=== PATIENT | female | born 1960 | race Caucasian/White ===

== ENCOUNTER 2023-06-17 07:04 | Outpatient (OUT) | payer OTHER, SELFPAY ==
--- NOTE | 2023-06-17 07:06 | MM_ITS ---
Patient: NOLBERTO SUAREZ Exam Date: 06/17/2023 : 1960 Gender:F Ordering : DR MALA IVERSON Admission #: [id number] Family : DR. NOHEMI PATHAK . Order #: [id number] CLICK HERE TO VIEW EXAM RADIOLOGY REPORT PROCEDURE: MM TOMOSYNTHESIS SCREENING BI COMPARISON: MG MAMM SCREEN 3D ANEL CAD, 06/14/2022. MG MAMM SCREEN 3D ANEL CAD, 06/12/2021. MG MAMM SCREEN ANEL W CAD, 06/06/2020. MG MAMM ANEL SCRN W CAD DIG, 04/06/2013. INDICATIONS: Screening Calculator Name NCI Breast Cancer Risk Assessment Tool 5 Year Breast Cancer Risk n/a% Lifetime Breast Cancer Risk n/a% Personal Breast Cancer Yes, RT BREAST AGE 39 Personal Ovarian Cancer No Treatments RT BREAST LUMPECTOMY WITH RADIATION Family Cancers Mother with breast cancer at age 56; Sister with breast cancer at age 54; Sister with breast cancer at age 49. LOCATION: [facility] BREAST COMPOSITION: Extremely dense, which lowers the sensitivity of mammography. FINDINGS: DIAGNOSTIC CATEGORY 2--BENIGN FINDING: RIGHT BREAST: No significant suspicious finding. Scattered benign-appearing calcifications are present. No significant change has occurred. LEFT BREAST: No significant suspicious finding. Scattered benign-appearing calcifications are present. No significant change has occurred. RECOMMENDATIONS: ROUTINE MAMMOGRAM AND CLINICAL EVALUATION IN 12 MONTHS. PLEASE NOTE: A NORMAL MAMMOGRAM DOES NOT EXCLUDE THE POSSIBILITY OF BREAST CANCER. A CLINICALLY SUSPICIOUS PALPABLE LUMP SHOULD BE BIOPSIED. Dictated by: Sohan Medina M.D. on 06/17/2023 at 12:11 Approved by: Sohan Medina M.D. on 06/17/2023 at 12:40
== END 2023-06-17 07:05 | disposition home or self-care (01) ==
LOC: MAMMO 07:04
PROVIDERS: PCP Family Medicine; Visit Provider Obstetrics & Gynecology
DX: Z12.31 Encounter for screening mammogram for malignant neoplasm of breast (principal); Z80.3 Family history of malignant neoplasm of breast
CPT/HCPCS: 77063; 77067

== ENCOUNTER 2024-07-03 08:49 | Outpatient (OUT) | payer OTHER, SELFPAY ==
--- NOTE | 2024-07-03 08:54 | MM_ITS ---
Patient Name: NOLBERTO SUAREZ MR#: [id number] : 1960 Exam Date: 07/03/2024 Ordering Doctor: DR MALA IVERSON RADIOLOGY REPORT PROCEDURE: MM TOMOSYNTHESIS SCREENING BI COMPARISON: MG MAMM SCREEN 3D ANEL CAD, 06/14/2022. MM TOMOSYNTHESIS SCREENING BI, 06/17/2023. INDICATIONS: Screening Calculator Name NCI Breast Cancer Risk Assessment Tool 5 Year Breast Cancer Risk n/a% Lifetime Breast Cancer Risk n/a% Personal Breast Cancer Yes, RT BREAST AGE 39 Personal Ovarian Cancer No Treatments RT BREAST LUMPECTOMY WITH RADIATION Family Cancers Mother with breast cancer at age 56; Sister with breast cancer at age 54; Sister with breast cancer at age 49. LOCATION: [facility] BREAST COMPOSITION: The breasts are extremely dense, which lowers the sensitivity of mammography. FINDINGS: DIAGNOSTIC CATEGORY 2--BENIGN FINDING. NO CHANGE FROM COMPARISON. Scattered benign-appearing calcifications are present. Scattered benign-appearing lymph nodes are present. RIGHT BREAST: No significant suspicious finding. LEFT BREAST: No significant suspicious finding. RECOMMENDATIONS: ROUTINE MAMMOGRAM AND CLINICAL EVALUATION IN 12 MONTHS. PLEASE NOTE: A NORMAL MAMMOGRAM DOES NOT EXCLUDE THE POSSIBILITY OF BREAST CANCER. A CLINICALLY SUSPICIOUS PALPABLE LUMP SHOULD BE BIOPSIED. Dictated by: Kyle Obregon MD on 07/03/2024 at 13:09 Approved by: Kyle Obregon MD on 07/03/2024 at 13:16
== END 2024-07-03 08:50 | disposition home or self-care (01) ==
LOC: MAMMO 08:49
PROVIDERS: PCP Family Medicine; Visit Provider Obstetrics & Gynecology
DX: Z12.31 Encounter for screening mammogram for malignant neoplasm of breast (principal); Z80.3 Family history of malignant neoplasm of breast
CPT/HCPCS: 77063; 77067

== ENCOUNTER 2025-07-04 07:46 | Outpatient (OUT) | payer MEDICARE, SELFPAY ==
--- OUTSIDE RECORDS SUMMARY | 2013-08-29 03:42 | XMS_ITS | Encounter Summary ---
Author Organization [facility] Address [address], [address] [place] [address] Care Team Providers Care Sheet Metal Erector Name Role Phone Christopher Deal MD Primary Care Provider [phone] Encounter Details Date Type Department Care Team (Late st Contact Info) Description 08/29/2013 2:42 AM EST Hospital Encounter MTH PRE ADMIT [address] [id number] Abraham Siddiqi MD 27 [facility] [address] [place] [address] Social History Tobacco Use Types Packs/Day Years Used Date Smoking Tobacco: Never Smokeless Tobacco: Never Alcohol Use Standard Drinks/Week Comments Not Currently 0 (1 standard drink = 0.6 oz pur e alcohol) rare PHQ-2 Answer Date Recorded PHQ-2 Score 0 12/20/2018 Comments No Sex and Gender Information Value Date Recorded Sex Assigned at Not on file Legal Sex Female 8:48 PM EST Gender Identity Not on file Sexual Orientation Not on file documented as of this encounter Last Filed Vital Signs Vital Sign Reading Time Taken Comments Blood Pressure 116/69 08/29/2013 7:56 AM EST Pulse 71 08/29/2013 7:56 AM EST Temperature - - Respiratory Rate 16 08/29/2013 7:56 AM EST Oxygen Saturation 97% 08/29/2013 7:56 AM EST Inhaled Oxygen Concentration - - Weight 55.6 kg (122 lb 9 oz) 08/29/2013 7:56 AM EST Height 158.8 cm (5' 2.5 ) 08/29/2013 7:56 AM EST Body Mass Index 22.06 08/29/2013 7:56 AM EST documented in this encounter Plan of Treatment Not on file documented as of this encounter Procedures Procedure Name Priority Date/Time Associated Diagnosis Comments URINALYSIS WITH MICROSCOPIC Sunquest Label Print 08/29/2013 8:18 AM EST CBC WITH AUTO DIFFERENTIAL Routine 08/29/2013 8:17 AM EST TYPE AND SCREEN Routine 08/29/2013 8:17 AM EST HCG, SERUM, QUALITATIVE Routine 08/29/2013 8:17 AM EST documented in this encounter Results * Urinalysis with microscopic (08/29/2013 8:18 AM EST) Color, UA YELLOW YEL 08/29/2013 1:12 PM EST PN [facility] Turbidity UA CLEAR CLEAR 08/29/2013 1:12 PM EST PN [facility] Glucose, Ur NEGATIVE NEG 08/29/2013 1:12 PM EST PN [facility] Bilirubin Urine NEGATIVE NEG 3 1:12 PM EST [facility] Ketones, Urine NEGATIVE NEG 08/29/2013 1:12 PM EST PN [facility] Specific [place], UA 1.010 1.010 - 1.020 08/29/2013 1:12 PM EST PN LAB Urine Hgb NEGATIVE NEG 08/29/2013 1:12 PM EST PN LAB pH, UA 7.0 5.0 - 9.0 08/29/2013 1:12 PM EST PN LAB Protein, UA NEGATIVE NEG 08/29/2013 1:12 PM EST PN [facility] Urobilinogen, Urine Normal NORM 08/29/2013 1:12 PM EST PN LAB Nitrite, Urine NEGATIVE NEG 08/29/2013 1:12 PM EST PN [facility] Leukocyte Esterase, Urine NEGATIVE NEG 08/29/2013 1:12 PM EST PN LAB Urinalysis Comments NOT REPORTED [facility] - 08/29/2013 1:12 PM EST PN LAB WBC, UA None 0 - 5 /HPF 08/29/2013 1:12 PM EST PN LAB RBC, UA None 0 - 2 /HPF 08/29/2013 1:12 PM EST [facility] Casts UA NOT REPORTED 0 - 2 /LPF [facility] Crystals, UA NOT REPORTED NONE /HPF [facility] Epithelial Cells, UA 0 TO 2 0 - 25 /HPF 08/29/2013 1:12 PM EST [facility] Comment: Performed at [address] [place] [address] Renal Epithelial, UA NOT REPORTED 0 /HPF [facility] Bacteria, UA NOT REPORTED NONE [facility] Mucus, UA NOT REPORTED NONE [facility] Trichomonas NOT REPORTED NONE [facility] Amorphous, UA NOT REPORTED NONE [facility] Other Observations UA NOT REPORTED NREQ [facility] Yeast, UA NOT REPORTED NONE [facility] URINE SPECIMEN / Unknown 08/29/2013 8:18 AM EST 08/29/2013 8:19 AM EST Abraham Siddiqi MD URINE ORDERABLES Final Result Performing Organization Address City/[facility] Co de Phone Number [facility] [address] [place] [id number] [phone] [facility] * TYPE AND SCREEN (08/29/2013 8:17 AM EST) Expiration Date 09/05/2013 3 1:26 PM EST [facility] Arm Band Number [id number] 1:26 PM EST [facility] ABO/Rh O POSITIVE 08/29/2013 1:26 PM EST [facility] Antibody Screen NEGATIVE 3 1:41 PM EST [facility] Comment: Performed at [address] [place] [address] BLOOD SPECIMEN / Unknown 08/29/2013 8:17 AM EST 08/29/2013 8:18 AM EST Abraham Siddiqi MD BLOOD BANK TEST ORDERABLES Fi nal Result [facility] [address] [place], [place] [address] [phone] [facility] * HCG Qualitative, Serum (08/29/2013 8:17 AM EST) Pathologist [facility] Preg, Serum NEGATIVE NEG 08/29/2013 1:17 PM EST PN LAB Comment: Performed at [address] [place] [id number] BLOOD SPECIMEN / Unknown 08/29/2013 8:17 AM EST 08/29/2013 8:18 AM EST us Abraham Siddiqi MD CHEMISTRY ORDERABLES Final Re sult Performing Organization Address [facility] [place]/[facility]/ZIP Co de Phone Number [facility] [address] [id number] [phone] [facility] * CBC auto differential (08/29/2013 8:17 AM EST) [facility] WBC 5.2 3.5 - 11.0 k/uL 08/29/2013 8:35 AM EST [facility] RBC 4.46 4.0 - 5.2 m/uL 08/29/2013 8:35 AM EST PN LAB Hemoglobin 13.7 12.0 - 16.0 g/dL 08/29/2013 8:35 AM EST [facility] Hematocrit 41.7 36 - 46 % 08/29/2013 8:35 AM EST [facility] MCV 93.7 80 - 100 fL 08/29/2013 8:35 AM EST PN [facility] MCH 30.7 26 - 34 pg 08/29/2013 8:35 AM EST PN LAB MCHC 32.8 31 - 37 g/dL 08/29/2013 8:35 AM EST [facility] RDW 13.1 10.0 - 14.0 % 08/29/2013 8:35 AM EST PN LAB Platelets 332 140 - 450 k/uL 08/29/2013 8:35 AM EST [facility] MPV NOT REPORTED 6.0 - 12.0 fL [facility] Differential Type NOT REPORTED [facility] Seg Neutrophils 59 36 - 66 % 3 8:35 AM EST [facility] Lymphocytes 30 24 - 44 % 08/29/2013 8:35 AM EST [facility] Monocytes % 8 0 - 12 % 08/29/2013 8:35 AM EST [facility] Eosinophils % 2 0 - 8 % 08/29/2013 8:35 AM EST [facility] Basophils % 1 0 - 2 % 08/29/2013 8:35 AM EST [facility] Neutrophils Absolute 3.10 1.8 - 7.7 k/uL 08/29/2013 8:35 AM EST [facility] Lymphocytes Absolute 1.60 1.0 - 4.8 k/uL 08/29/2013 8:35 AM EST [facility] Monocytes Absolute 0.40 0.0 - 1.0 k/uL 08/29/2013 8:35 AM EST [facility] Eosinophils Absolute 0.10 0.0 - 0.4 k/uL 08/29/2013 8:35 AM EST [facility] Basophils Absolute 0.00 0.0 - 0.2 k/uL 08/29/2013 8:35 AM EST [facility] Comment: Performed at [address] [place] [address] WBC Morphology NOT REPORTED [facility] RBC Morphology NOT REPORTED [facility] Platelet Estimate NOT REPORTED [facility] BLOOD SPECIMEN / Unknown 08/29/2013 8:17 AM EST 08/29/2013 8:18 AM EST us Abraham Siddiqi MD HEMATOLOGY ORDERABLES Final R esult [address] [id number] [phone] [facility] documented in this encounter Visit Diagnoses Not on filedocumented in this encounter Care Teams Sheet Metal Erector Relationship Specialty Start Date End Date Christopher Deal MD [address] [facility]. [address] [place] [address] PCP - General 12/26/12 documented as of this encounter
--- OUTSIDE RECORDS SUMMARY | 2020-10-15 12:30 | XMS_ITS | Continuity of Care Document ---
Author Organization [facility] Address [address] [place] [address] Phone Care Team Providers Care Firer Watertender Name Role Phone Asael Uribe Unavailable Unavailable Procedures Procedure Date Moderna COVID Vaccine Admin Dose 2 Moderna COVID-19 Vaccine Moderna COVID Vaccine Admin Dose 2 Moderna COVID-19 Vaccine Moderna COVID Vaccine Admin Dose 1 Moderna COVID-19 Vaccine Advance Directives Directive Yes / No Effective Date File Name No Information Encounters Encounter Description Practice Location Reason(s) For Visit Diagnoses Date Provider Providers Copied on Encounter [facility], [address] [place] [address], [id number], tel:[phone] COVID ECHD No Information Stephanie Kearney. [address] [place] [address], [id number], [place]. tel:[phone] [facility], [address] [place] [address], [id number], [place] tel:[phone] COVID ECHD No Information Stephanie Kearney. [address] [place] [address], [id number], [place]. tel:[phone] Family History Family Member Type Diagnosis Age At Onset No Information Immunizations Vaccine Date Status Comments Moderna COVID administered Source: New Im munization Record Moderna COVID administered Source: New Im munization Record Payers Payer name Insurance type Covered republican ID Ric ulrich(s) [employer] [place] [employer] [id number] [employer] [place] [employer] [id number] [employer] [place] [id number] Social History Type Description Quantity Date Captured Comments Alcohol Use Details Unknown Caffeine Use Details Unknown Tobacco Use Status No Information Smoking Status No Information Sex Female Sexual Orientation Straight or heterosexual Gender Identity Female Chief Complaint And Reason For Visit No Information Reason For Referral Reason For Referral No Information History Of Present Illness Encounter Date Complaint History Of Prese nt Illness No Information Functional Status Date Functional Assessmen t No Information Instructions Date Instruction Additional Infor mation No Information Assessments Type Assessment Date No Information Patient Care Teams Name Effective Dates (start - stop) Status Members No Information
--- OUTSIDE RECORDS SUMMARY | 2025-07-04 07:48 | XMS_ITS | Clinical Summary ---
Author Organization [facility] Address [address], [address] [place] [address] Care Team Providers Care Wool Sorter Name Role Phone Christopher Deal MD Primary Care Provider [phone] Allergies No known active allergies Medications sertraline (ZOLOFT) 50 MG tabletIndication s:Situational depression TAKE 1/2 TABLET BY MOUTH EVERY DAY 30 tablet 5 05/27/2023 Active Active Problems No known active problems Immunizations Immunization Administration Dates Next Due Influenza Vaccine, unspecified formulation 06/21 Family History Medical History Relation Name Comments High Blood Pressure Father High Blood Pressure Maternal Grandfather High Blood Pressure Maternal Grandmother Breast Cancer Mother High Blood Pressure Mother High Blood Pressure Paternal Grandfather High Blood Pressure Paternal Grandmother Relation Name Status Comments Father Alive Maternal Grandfather Maternal Grandmother Mother Paternal Grandfather Paternal Grandmother Sister 1 Alive Sister 2 Alive Social History Tobacco Use Types Packs/Day Years [...] on file Sexual Orientation Not on file Last Filed Vital Signs Vital Sign Reading Time Taken Comments Blood Pressure 114/70 05/27/2023 9:16 AM EDT Pulse 64 08/31/2013 10:55 AM EST Temperature 36.7 C (98 F) 08/31/2013 10:55 AM EST Respiratory Rate 15 08/31/2013 10:55 AM EST Oxygen Saturation 96% 08/31/2013 10:55 AM EST Inhaled Oxygen Concentration - - Weight 56.2 kg (124 lb) 05/27/2023 9:16 AM EDT Height 157.5 cm (5' 2 ) 05/27/2023 9:16 AM EDT Body Mass Index 22.68 05/27/2023 9:16 AM EDT Plan of Treatment Health Maintenance Due Date Last Done Comments Depression Screen 1970 Hepatitis C screen 1976 Lipids 1998 Colonoscopy 12/12/2003 Colorectal Cancer Screen 12/12/2003 FIT/FOBT: Average risk 12/12/2003 Fecal-DNA (Cologuard): Average risk 12/12/2003 Sigmoidoscopy/CT colonography 12/12/2003 Pneumococcal 50+ years Vaccine (1 of 1 - PCV) 2008 DEXA (modify frequency per FRAX score) 2013 DTaP/Tdap/Td vaccine (2 - Td or Tdap) 01/18/2023 01/18/2013 Flu vaccine (#1) 04/19/2025 07/06/2022, , 07/05/2020, Additional history exists COVID-19 Vaccine ( - season) 2025 Breast cancer screen 07/03/2025 07/03/2024, 06/17/2023, 06/04/2019, Additional history exists Respiratory Syncytial Virus (RSV) or age 60 yrs+ (1 - 1-dose 75+ series) 2033 HPV (without or with Pap) Discontinued 03/17/2018 Shingles vaccine Completed 04/26/2021, 01/23/2021 Cervical cancer screen Discontinued Pap smear Discontinued 05/27/2023, 10/21, 11/02/2019, Additional history exists Hepatitis A vaccine Aged Out No longe r eligible based on patient's age to complete this topic Hepatitis B vaccine Aged Out No longe r eligible based on patient's age to complete this topic Hib vaccine Aged Out No longer eligi ble based on patient's age to complete this topic Meningococcal (ACWY) vaccine Aged Out No longer eligible based on patient's age to complete this topic Meningococcal B vaccine Aged Out No l onger eligible based on patient's age to complete this topic Polio vaccine Aged Out No longer elig ible based on patient's age to complete this topic Procedures Procedure Name Priority Date/Time Associated Diagnosis Comments ARTEMIO SCREENING BILATERAL Routine 07/03/20 10:28 AM EDT CLIENT SERVER DEVELOPER CYTOLOGY Routine 05/27/2023 12:00 AM EDT HUMAN PAPILLOMAVIRUS (HPV) DNA PROBE THIN PREP HIGH RISK Routine 03/17/2018 8:21 AM EDT from Last 3 Months or Most Recently Relevant to Health Maintenance Results * ARTEMIO Screening Bilateral (07/03/2024 10:28 AM EDT) Anatomical Region Laterality Modality Breast Bilateral Mammography Abraham Siddiqi MD IM MAMMOGRAPHY ORDERABLES Ed ited Result - Final * CLIENT SERVER DEVELOPER Cytology (05/27/2023 12:00 AM EDT) Cytology Report Path Number: [id number] DIAGNOSIS Imaged ThinPrep Pap - Cervical (1 monolayer slide): Specimen Adequacy: Satisfactory for evaluation. -Endocervical/tra nsformation zone component cannot be determined due to atrophy. Descriptive Diagnosis: Negative for intraepithelial lesion or malignancy. Cytotech Screener: EY Electronically Signed Out Kaila PEREZ(ASCP) ey/06/02/2023 Source of Specimen: A: Imaged ThinPrep Pap - Cervical (1 monolayer slide) HPV Reflex?........... ...........HPV if ASCUS Clinical History Postmenopausal High risk HPV DNA testing is requested if the diagnosis is abnormal Processing Lab: [address] [id number] Interpretation performed at [address] [address] This Pap Test has been evaluated with the assistance of the ThinPrep Pap Test Imaging System. The Pap smear is a screening test primarily for squamous epithelial lesions, which is subject to both false negative and false positive results. Your patient should be reminded to consult you immediately if she experiences any suspicious signs or symptoms, regardless of her Pap smear result. GYNECOLOGIC CYTOLOGY REPORT Patient Name: RADHIKA SUAREZ [facility] Rec: [address] [facility] Clerk [employer] ANATOMIC PATHOLOGY [facility] [facility]. [place], [place] [address] [facility] [employer] CERVICAL MATERIAL 05/27/2023 023 9:20 AM EDT us Abraham Siddiqi MD PATHOLOGY/CYTOLOGY ORDERABLES Final Result [facility] [address] [phone] [facility] [employer] * Human papillomavirus (HPV) DNA probe thin prep high risk (03/17/2018 8:21 AM EDT) HPV SOURCE CERVICAL MATERIAL 04/06/2018 8:22 AM EDT [employer]ugg HPV Sample .THIN PREP 04/06/2018 8:22 AM EDT Tugg HPV, Genotype 16 Not Detected NOTDET 04/07/2018 7:06 AM EDT Tugg HPV, Genotype 18 Not Detected NOTDET 04/07/2018 7:06 AM EDT Tugg HPV, High Risk Other Not Detected NOTDET 04/07/2018 7:06 AM EDT Tugg HPV, Interpretation 04/07/2018 7:06 AM EDT Tugg Comment: This test amplifies and detects DNA of 14 high-risk HPV types associated with cervical cancer and its precursor lesions (HPV types 16,18, 31, 33, 35, 39, 45, 51, 52, 56, 58, 59, 66, and 68). Sensitivity may be affected by specimen collection methods, stage of infection, and the presence of interfering substances. Results should be interpreted in conjunction with other available laboratory and clinical data. A negative high-risk HPV result does not exclude the possibility of future cytologic HSIL or underlying CIN2-3 or cancer. This test is intended for medical purposes only and is not valid for the evaluation of suspected sexual abuse or for other forensic purposes. 03/17/2018 8:21 AM EDT 04/06/2018 8:21 AM EDT us Abraham Siddiqi MD HEMATOLOGY ORDERABLES Final R esult [facility] [address] [place] [address], [facility] [phone] [facility] [address] [place], [place] [address] [phone] from Last 3 Months or Most Recently Relevant to Health Maintenance Insurance [employer] Advance Directives * Full Code (Latest Code Status on File) Date Activated Date Inactivated Comments 08/31/2013 11:02 AM 08/31/2013 1:11 PM Care Teams Wool Sorter Relationship Specialty Start Date End Date Christopher Deal MD [address] [id number] PCP - General 12/26/12
--- OUTSIDE RECORDS SUMMARY | 2025-07-04 07:48 | XMS_ITS | CCD ---
Author Organization [facility] Inform ion Partnership [facility] Care Team Providers Care Head Of Operation And Logistics Name Role Phone Christopher Joiner Primary Care Provider [phone] Nohemi Pathak Primary Care Physician [phone] NOHEMI PATHAK Primary Care Unavailable ZAYRA, DR MALA Denton Attending Unavailable ZAYRA, DR MALA Denton Admitting Unavailable Sabas, DR Wright Consulting Unavailable ZAYRA, DR MALA Denton Consulting Unavailable NOHEMI PATHAK Consulting Unavailable NOHEMI PATHAK Primary Care Unavailable NOHEMI PATHAK Admitting Unavailable NOHEMI PATHAK Attending Unavailable Nohemi Pathak Primary Care Physician CHRISTOPHER JOINER Primary Care Unavailable MALA IVERSON Referring Unavailable Nohemi Pathak Attending Unavailable Jalen Infante Attending Unavailable Nohemi Pathak Attending Unavailable Nohemi Pathak Attending Unavailable Allergies Allergy Classification Reported Allergen(s) Allergy Type Date of Onset Reaction(s) Facility (1 source) No Known Medication Allergies; Translations: [No Known Medication Allergies] Propensity to adverse reactions (disorder) [facility] Repository Medications Current Medications Medication Drug Class(es) Dates Sig (Normalized) Sig (Original) sertraline 50 mg oral tablet (1 source) Serotonin Reuptake Inhibitor Start: 11-02-2019 take 1 tablet by mouth once daily sertraline (ZOLOFT) 50 MG tablet Indications: Situational depression Take 1 tablet by mouth daily 30 tablet 12 11/02/2019 Active Problems Problem Classification Problem Date Documented Da te Episodic/Chronic Adjustment disorders (1 source) Adjustment disorder with depressed mood; Translations: [Adjustment disorder with depressed mood] Onset: 05-27-2023 Chronic Disorders of lipid metabolism (4 sources) Mixed hyperlipidemia 05-13-2022 Chronic Diverticulosis and diverticulitis (1 source) Diverticula of intestine; Translations: [Diverticulosis of large intestine without perforation or abscess without bleeding] Onset: 08-20-2022 Chronic Mood disorders (4 sources) Single episode of major depression in full remission 05-13-2022 Chronic Other gastrointestinal disorders (1 source) Abnormal feces; Translations: [Other fecal abnormalities] Onset: 08-05-2022 Episodic Other nutritional; endocrine; and metabolic disorders (1 source) Overweight in adulthood with body mass index of 25 or more but less than 30; Translations: [Body mass index (BMI) 28.0-28.9, adult] Onset: 05-13-2022 Episodic Other screening for suspected conditions (not mental disorders or infectious disease) (7 sources) Encounter for screening mammogram for malignant neoplasm of breast; Translations: [Stool DNA-based colorectal cancer screening positive] Onset: 06-14-2022 Episodic Residual codes; unclassified (1 source) Patient encounter status; Translations: [Other specified health status] Onset: 05-13-2022 Episodic Residual codes; unclassified (1 source) Family history of malignant neoplasm of breast; Translations: [FAMILY HX MALIG NEOPLASM OF BREAST] Onset: 06-17-2022 Episodic Unclassified (1 source) Patient encounter status Unclassified (3 sources) Body mass index 20-24 - normal 08-05-2022 Results Test Name Value Interpretation Reference Range Facil ity Ambulatory Visit Summaryon 0 11-06-2024 Ambulatory Visit Summary Ambulatory Visit Summary RADHIKA SUAREZ :1960 Visit Date:11/06/2024 Ambulatory Visit Instructions Your Diagnosis IT band syndrome BMI 24.0-24.9, adult Nonsmoker Your Care Team Attending Physician - Nohemi Pathak MD Primary Care Physician - Nohemi Pathak MD This Is Your Medications List Contact prescribing physician if questions or concerns atorvastatin (Lipitor 20 mg Tab) Procedures Performed Colonoscopy (08/20/2022), Cataract extraction (2019), Colonoscopy (2012), Lumpectomy of right breast (1998). Discharge Vitals Temperature (Tympanic) 36.7 ???C Heart Rate (Peripheral) 75 Respiratory Rate 18 Blood Pressure 132/84 Height 157 cm Height 62 in Weight 59.2 kg Weight 130.514 lb BMI 24.02 What to do next Scheduled Follow-Up Appointments Tuesday 8:15 AM EDT With: Angel ELLIS, Nohemi Bright Where: [place] [id number]- Medications What How Much When Why Instructions Unchanged atorvastatin (Lipitor 20 mg Tab) 1 Tablets By Mouth Every day Physical exam Nonsmoker Major depressive disorder with single episode, in full remission Mixed hyperlipidemia Contact prescribing physician if questions or concerns Allergies No Known Allergies No Known Medication Allergies Problems Ongoing - Any problem that you are currently receiving treatment for. BMI 22.0-22.9, adult BMI 24.0-24.9, adult IT band syndrome Major depressive disorder with single episode, in full remission Mixed hyperlipidemia Nonsmoker Patient Survey You may receive a survey via text or e-mail asking about your office visit. Please share your experience with us by completing your survey. We appreciate your feedback and thank you for choosing us for your care. Normal [facility] Medicine Office/Clini c Noteon 11-06-2024 Family Medicine Office/Clinic Note Family Medicine Office/Clinic Note Chief Complaint Acute Visit *Pain The patient complains of hip pain and tightness in the iliotibial band. HPI Staff Pt presents today for acute visit. Has been having Lt hip issues. Currently 0/10. Pain is exacerbated with walking up stairs. Has tried deep tissue massage & chiropractor. History of Present Illness The patient is a 63-year-old female presenting with hip pain and muscle tightness. The symptoms have been present for an unspecified duration with reports of discomfort that initiate when lying on either side while sleeping and when ascending stairs. The pain is described as a pinching sensation on the opposite side when lying down and on the affected side during stair climbing. The patient reports tightness in the iliotibial (IT) band region, with previous concerns about greater trochanteric bursitis that were evaluated and found unlikely. The patient has attempted conservative management with stretching exercises, nonsteroidal anti-inflammatory drugs, and massage therapy, including deep tissue massage, with some relief. The patient expresses apprehension about chiropractic treatments. The pain does not radiate and is not characterized by shooting pain, but rather a persistent tightness, affecting both the hip and lower back areas. 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 The patient has not had imaging studies, such as X-rays or MRIs for arthritis evaluation. - Discussions about managing physical stress and muscular tension through lifestyle adaptations including posture modifications and physical therapy referrals. - Emphasis on continued physical activity and stretching exercises pertinent to IT band syndrome management. - Non-smoker status confirmed during conversation. Review of Systems PHQ Score Initial Depression Screen Score: 0 SCORE Physical Exam Vitals & Measurements T: 36.7 ???C(Tympanic) HR: 75(Peripheral) RR: 18 BP: 132/84 SpO2: 96% HT: 62 in HT: 157 cm WT: 59.2 kg WT: 130.514 lb BMI: 24.02 General: alert, no acute distress ENMT: oral mucosa moist Cardiovascular: Regular rate and rhythm, normal peripheral perfusion Respiratory: Lungs clear to auscultation, respirations non labored Extremities: no deformity, no trauma Neurological: oriented x 4, level of consciousness appropriate for age, CN II-XII intact, motor strength equal & normal bilaterally, speech normal Abdomen: Soft, Non-tender, Non-distended, + Bowel sounds Assessment/Plan 1. IT band syndrome (M76.30: Iliotibial band syndrome, unspecified leg) The focus for the IT band syndrome will include continuing targeted stretching exercises and utilizing NSAIDs for symptomatic relief as needed. The patient has been advised on purchasing an IT band roller to aid in reducing muscular tightness. Discussion of potential intensive care nurse was noted but the patient expressed discomfort with this intervention. Follow-up for possible physical therapy evaluation to explore the need for remedial exercises and further posture adjustment has been recommended. 2. BMI 24.0-24.9, adult (Z68.24: Body mass index [BMI] 24.0-24.9, adult) Maintenance of current weight through healthy lifestyle, diet, and exercise is recommended. Continual monitoring of BMI and potential weight management interventions should be addressed in future visits. 3. Nonsmoker (Z78.9: Other specified health status) No intervention required; continue to maintain a non-smoking status. 63-year-old female with a history of BMI 24.0-24.9 and non-smoking status presenting with hip pain and discomfort attributed to iliotibial band syndrome. The patient's symptomatology aligns with this diagnosis, with muscular tightness and associated hip pain upon activity. There is no evidence of greater trochanteric bursitis or rheumatoid arthritis based on reported symptoms. Consideration of musculoskeletal etiology related to occupational posture and stress has been noted. I discussed with the patient that the symptoms are consistent with iliotibial band syndrome, emphasizing the importance of continuing stretching exercises and the potential use of an IT band roller to relieve tension. NSAIDs may be used to manage pain. While intensive care nurse was a consideration, the patient prefers alternative methods. We reviewed the importance of posture modification in daily activities to alleviate muscular strain, especially given her occupation. I recommended monitoring the symptoms and consider seeking physical therapy to address potential underlying musculoskeletal issues if the condition persists. We also discussed her BMI, encouraging a healthy lifestyle and weight maintenance. Cardiovascular health is a priority due to her non-smoking status and BMI. I reassured her that no immediate imaging studies were necessary given the current evaluation, and we would consider diagnostic (more content not included)... Normal [facility] Comment on above: Result Comment: Elec tronically Signed By: Angel ELLIS, Nohemi Bright\.br\Date and Time Signed: 11/06/24 13:58 EST Family Medicine Office/Clini c Noteon 05-28-2024 Family Medicine Office/Clinic Note Family Medicine Office/Clinic Note HPI Staff Radhika is a 63 year old female presenting for yearly PE Labs done through school, cholesterol high tried fish oit but wants to get on cholesterol medication Health Maintenance: Colonoscopy: 2021 normal Mammo: due Jun 2024 Pap: 2022 Last Labs: 05/04/24 ([place]) History of Present Illness Reviewed labs. Here for complete physical. Review of Systems PHQ Score Initial Depression Screen Score: 0 SCORE Physical Exam Vitals & Measurements T: 36.8 ?C(Temporal Artery) HR: 72(Peripheral) RR: 16 BP: 112/70 SpO2: 96% HT: 62 in HT: 157 cm WT: 58.2 kg WT: 128.04 lb BMI: 23.61 General: alert, no acute distress ENMT: oral mucosa moist, Cardiovascular: regular rate and rhythm, normal peripheral perfusion Respiratory: Lungs CTA, respirations non labored Extremities: no deformity, no trauma Neurological: oriented x 4, LOC appropriate for age, CN II-XII intact, motor strength equal & normal bilaterally, speech normal Abdomen: Soft, Nontender, Non-distended, + BS Assessment/Plan 1. Physical exam (Z00.00: Encounter for general adult medical examination without abnormal findings) Anticipatory guidance given. Discussed diet and exercise. Ordered: atorvastatin, 20 mg = 1 tab(s), Oral, Daily, # 90 tab(s), Refills(s) 0, Pharmacy: [facility], 157, cm, 05/28/24 16:58:00 EDT, Height/Length Dosing, 58.2, kg, 05/28/24 16:58:00 EDT, Weight Dosing Est Preventative 65+ years [address] 2. Nonsmoker (Z78.9: Other specified health status) Please continue not to smoke. Ordered: atorvastatin, 20 mg = 1 tab(s), Oral, Daily, # 90 tab(s), Refills(s) 0, Pharmacy: [facility], 157, cm, 05/28/24 16:58:00 EDT, Height/Length Dosing, 58.2, kg, 05/28/24 16:58:00 EDT, Weight Dosing Est Preventative 65+ years [address] 3. Major depressive disorder with single episode, in full remission (F32.5: Major depressive disorder, single episode, in full remission) In remission. Ordered: atorvastatin, 20 mg = 1 tab(s), Oral, Daily, # 90 tab(s), Refills(s) 0, Pharmacy: [facility], 157, cm, 05/28/24 16:58:00 EDT, Height/Length Dosing, 58.2, kg, 05/28/24 16:58:00 EDT, Weight Dosing Est Preventative 65+ years [address] 4. Mixed hyperlipidemia (E78.2: Mixed hyperlipidemia) Will start a low-dose statin. Instructions discussed in detail. Ordered: atorvastatin, 20 mg = 1 tab(s), Oral, Daily, # 90 tab(s), Refills(s) 0, Pharmacy: [facility], 157, cm, 05/28/24 16:58:00 EDT, Height/Length Dosing, 58.2, kg, 05/28/24 16:58:00 EDT, Weight Dosing Est Preventative 65+ years [address] Follow-up No qualifying data available Problem List/Past Medical History Ongoing BMI 22.0-22.9, adult Major depressive disorder with single episode, in full remission Mixed hyperlipidemia Physical exam Historical No qualifying data Procedure/Surgical History Colonoscopy (08/20/2022), Cataract extraction (2019), Colonoscopy (2012), Lumpectomy of right breast (1998). Medications Lipitor 20 mg Tab, 20 mg= 1 tab(s), Oral, Daily Allergies No Known Allergies No Known Medication Allergies Social History Alcohol Current, Wine, 1-2 times per month, 05/13/2022 Substance Abuse - Denies Substance Abuse, 05/13/2022 Tobacco Never (less than 100 in lifetime) Tobacco Use:. Never Smokeless Tobacco Use:., 05/28/2024 Family History Primary malignant neoplasm of female breast: Mother and Sister. Normal [facility] Comment on above: Result Comment: Elec tronically Signed By: Angel ELLIS, Nohemi Raza.portia\Date and Time Signed: 05/28/24 17:36 EDT Cytology Reporton 05-27-2023 Cytology report Cyto stain.thin prep Doc (Cvx/Vag) (NOTE) Path Number: [id number] DIAGNOSIS Imaged ThinPrep Pap - Cervical (1 monolayer slide): Specimen Adequacy: Satisfactory for evaluation. -Endocervical/transfo rmation zone component cannot be determined due to atrophy. Descriptive Diagnosis: Negative for intraepithelial lesion or malignancy. Cytotech Screener: EY Electronically Signed Out Kaila PEREZ(ASCP) ey/06/02/2023 Source of Specimen: A: Imaged ThinPrep Pap - Cervical (1 monolayer slide) HPV Reflex?.............. ........HPV if ASCUS Clinical History Postmenopausal High risk HPV DNA testing is requested if the diagnosis is abnormal Processing Lab: [address] [id number] Interpretation performed at [address] [id number] This Pap Test has been evaluated with [...] GYNECOLOGIC CYTOLOGY REPORT Patient Name: RADHIKA SUAREZ [facility] Rec: [id number] [facility] [employer] [facility] ANATOMIC PATHOLOGY [address] [place] [address]. [place], [place] [address] Normal [facility] MG MAMM SCREEN 3D ANEL CADon 06-14-2022 MG MAMM SCREEN 3D ANEL CAD Patient: RADHIKA SUAREZ Exam Date: 06/14/2022 : 1960 Gender:F Ordering : DR MALA IVERSON Admission #: [id number] Family : Order #: [id number] CLICK HERE TO VIEW EXAM RADIOLOGY REPORT PROCEDURE: MAMMOGRAM SCREENING 3D BILATERAL CAD COMPARISON: MG MAMM SCREEN 3D ANEL CAD, 06/12/2021. INDICATIONS: Screening mammography Calculator Name NCI Breast Cancer Risk Assessment Tool 5 Year Breast Cancer Risk n/a% Lifetime Breast Cancer Risk n/a% Personal Breast Cancer Yes, RT BREAST AGE 39 Personal Ovarian Cancer No Treatments RT BREAST LUMPECTOMY WITH RADIATION Family Cancers Mother with breast cancer at age 56; Sister with breast cancer at age 54; Sister with breast cancer at age 49. LOCATION: [facility] BREAST COMPOSITION: Extremely dense, which lowers the sensitivity of mammography. FINDINGS: DIAGNOSTIC CATEGORY 2--BENIGN FINDING. NO CHANGE FROM COMPARISON. Scattered benign-appearing nodules are present. Scattered benign-appearing calcifications are present. Scattered benign-appearing lymph nodes are present. Bilateral linear scar markers RIGHT BREAST: No significant suspicious finding. LEFT BREAST: No significant suspicious finding. Microclip marker upper outer quadrant. RECOMMENDATIONS: ROUTINE MAMMOGRAM AND CLINICAL EVALUATION IN 12 MONTHS. PLEASE NOTE: A NORMAL MAMMOGRAM DOES NOT EXCLUDE THE POSSIBILITY OF BREAST CANCER. A CLINICALLY SUSPICIOUS PALPABLE LUMP SHOULD BE BIOPSIED. Dictated by: Kyle Obregon MD on 06/14/2022 at 09:35 Approved by: Kyle Obregon MD on 06/14/2022 at 09:42 Normal [facility] CBC AUTO DIFFon 05-06-2022 BASO # 0.1 103/ul Normal 0.0-0.1 [facility] Comment on above: Performed By: #### H FPFCBC #### [facility] [address] [place] [address] [address] Jer Arita Basophils/100 WBC (Bld) 1.8 % Normal 0.2-2.0 [facility] Comment on above: Performed By: #### H FPFCBC #### [facility] [address] [place] [address] Dr. Jer Arita EO # 0.2 103/ul Normal 0.0-0.7 [facility] Comment on above: Performed By: #### H FPFCBC #### [facility] [address] [place] [address] Dr. Jer Arita Eosinophils/100 WBC (Bld) 3.6 % Normal 0.9-7.0 [facility] Comment on above: Performed By: #### H FPFCBC #### [facility] [address] [place] [address] Dr. Jer Arita Erythrocyte distribution width (RBC) [Ratio] 12.8 % Normal 11.0-15.0 [facility] Comment on above: Performed By: #### H FPFCBC #### [facility] [address] [place] [address] Dr. Jer Arita Hematocrit (Bld) [Volume fraction] 43.7 % Normal 36.0-48.0 [facility] Comment on above: Performed By: #### H FPFCBC #### [facility] [address] [place] [address] Dr. Jer Arita Hemoglobin (Bld) [Mass/Vol] 14.2 g/dL Normal 12.0-16.0 [facility] Comment on above: Performed By: #### H FPFCBC #### [facility] [address] [place] [address] Dr. Jer Arita IG # 0.01 10e3/ul Normal 0.00-0.03 [facility] Comment on above: Performed By: #### H FPFCBC #### [facility] [address] [place] [address] Dr. Jer Arita IG % 0.2 % Normal 0.0-0.5 [facility] Comment on above: Performed By: #### H FPFCBC #### [facility] [address] [place] [address] Dr. Jer Arita LYMPH # 2.2 103/ul Normal 1.2-3.8 [facility] Comment on above: Performed By: #### H FPFCBC #### [facility] [address] [place] [address] Dr. Jer Arita Lymphocytes/100 WBC (Bld) 43.8 % Normal 20.5-60.0 [facility] Comment on above: Performed By: #### H FPFCBC #### [facility] [address] [place] [address] Dr. Jer Arita MCH (RBC) [Entitic mass] 30.6 pg Normal 26.7-34.0 [facility] Comment on above: Performed By: #### H FPFCBC #### [facility] [address] [place] [address] Dr. Jer Arita MCHC (RBC) [Mass/Vol] 32.5 g/dL Normal 29.9-35.2 [facility] Comment on above: Performed By: #### H FPFCBC #### [facility] [address] [place] [address] Dr. Jer Arita MCV (RBC) [Entitic vol] 94.2 fL Normal 81.0-99.0 [facility] Comment on above: Performed By: #### H FPFCBC #### [facility] [address] [place] [address] Dr. Jer Arita MONO # 0.5 103/ul Normal 0.3-0.8 [facility] Comment on above: Performed By: #### H FPFCBC #### [facility] [address] [place] [address] Dr. Jer Arita Monocytes/100 WBC (Bld) 10.3 % Normal 1.7-12.0 [facility] Comment on above: Performed By: #### H FPFCBC #### [facility] [address] [place] [address] Dr. Jer Arita NEUT # 2.0 103/ul Normal 1.4-6.5 [facility] Comment on above: Performed By: #### H FPFCBC #### [facility] [address] [place] [address] [address] Jer Arita Neutrophils/100 WBC (Bld) 40.3 % Critically low 43.0-75.0 [facility] Comment on above: Performed By: #### H FPFCBC #### [facility] [address] [place] [address] [address] Jer Arita Platelet mean volume (Bld) [Entitic vol] 11.2 fL Normal 9.5-13.5 [facility] Comment on above: Performed By: #### H FPFCBC #### [facility] [address] [place] [address] [address] Jer Arita PLT 336 103/ul Normal 150-450 [facility] Comment on above: Performed By: #### H FPFCBC #### [facility] [address] [address] [address] Jer Arita RBC 4.64 106/ul Normal 4.20-5.40 [facility] Comment on above: Performed By: #### H FPFCBC #### [facility] [address] [address] [address] Jer Arita WBC 5.0 103/ul Normal 4.0-11.0 [facility] Comment on above: Performed By: #### H FPFCBC #### [facility] [address] [address] [address] Jer Arita [employer] PROFILEon 022 Albumin [Mass/Vol] 4.0 g/dL Normal 3.4-5.0 [facility] Comment on above: Performed By: #### H FPF #### [facility] [address] [address] [address] Jer Arita Albumin/Globulin [Mass ratio] 1.1 {ratio} Normal [facility] Comment on above: Performed By: #### H FPF #### [facility] [address] [address] [address] Jer Arita ALP [Catalytic activity/Vol] 80 U/L Normal 46-116 [facility] Comment on above: Performed By: #### H FPF #### [facility] [address] [address] [address] Jer Arita ALT [Catalytic activity/Vol] 21 U/L Normal 14-59 [facility] Comment on above: Performed By: #### H FPF #### [facility] [address] [address] [address] Jer Arita AST [Catalytic activity/Vol] 19 U/L Normal 15-37 [facility] Comment on above: Performed By: #### H FPF #### [facility] [address] [address] [address] Jer Arita Bilirubin [Mass/Vol] 0.4 mg/dL Normal 0.2-1.0 [facility] Comment on above: Performed By: #### H FPF #### [facility] [address] [place] [address] Dr. Jer Arita Calcium [Mass/Vol] 9.3 mg/dL Normal 8.5-10.1 [facility] Comment on above: Performed By: #### H FPF #### [facility] [address] [place] [address] Dr. Jer Arita Chloride [Moles/Vol] 105 mmol/L Normal 98-107 [facility] Comment on above: Performed By: #### H FPF #### [facility] [address] [place] [address] Dr. Jer Arita CHOL-HDL RATIO NORM SEE BELOW Normal [facility] Comment on above: Result Comment: 3.3 - 4.4 LOW RISK 4.4 - 7.1 AVERAGE RISK 7.1 - 11.0 MODERATE RISK >11.0 HIGH RISK Performed By: #### H FPF #### [facility] [address] [address] [address] Jer Arita Cholesterol [Mass/Vol] 208 mg/dL Critically high <=200 [facility] Comment on above: Performed By: #### H FPF #### [facility] [address] [place] [address] [address] Jer Arita Cholesterol in HDL [Mass/Vol] 74 mg/dL Critically high 40-60 [facility] Comment on above: Performed By: #### H FPF #### [facility] [address] [address] [address] Jer Arita Cholesterol in LDL [Mass/Vol] 120.2 mg/dL Normal [facility] Comment on above: Performed By: #### H FPF #### [facility] [address] [address] [address] Jer Arita Cholesterol.total/C holesterol in HDL [Mass ratio] 2.8 {ratio} Normal [facility] Comment on above: Performed By: #### H FPF #### [facility] [address] [address] [address] Jer Arita CO2 [Moles/Vol] 30.2 mmol/L Normal 21.0-32.0 [facility] Comment on above: Performed By: #### H FPF #### [facility] [address] [address] [address] Jer Arita Creatinine [Mass/Vol] 0.80 mg/dL Normal 0.55-1.02 [facility] Comment on above: Performed By: #### H FPF #### [facility] [address] [address] [address] Jer Arita Globulin (S) [Mass/Vol] 3.8 g/dL Normal [facility] Comment on above: Performed By: #### H FPF #### [facility] [address] [address] [address] Jer Arita Glucose [Mass/Vol] 89 mg/dL Normal 74-106 [facility] Comment on above: Performed By: #### H FPF #### [facility] [address] [address] [address] Jer Arita HDL NORMAL > or = 60 mg/dl - LO W CARDIOVASCULAR RISK <40 mg/dl - HIGH CARDIOVASCULAR RISK Normal [facility] Comment on above: Performed By: #### H FPF #### [facility] [address] [address] [address] Jer Arita LDL CALC NORMAL SEE BELOW Normal [facility] Comment on above: Result Comment: <100 mg/dl OPTIMAL 100 - 129 mg/dl NEAR OR ABOVE OPTIMAL 130 - 159 mg/dl BORDERLINE HIGH 160 - 189 mg/dl HIGH >190 mg/dl VERY HIGH Performed By: #### H FPF #### [facility] [address] [place] [address] Dr. Jer Arita Potassium [Moles/Vol] 4.2 mmol/L Normal 3.5-5.1 [facility] Comment on above: Performed By: #### H FPF #### [facility] [address] [place] [address] Dr. Jer Arita Protein [Mass/Vol] 7.8 g/dL Normal 6.4-8.2 [facility] Comment on above: Performed By: #### H FPF #### [facility] [address] [place] [address] Dr. Jer Arita Sodium [Moles/Vol] 142 mmol/L Normal 136-145 [facility] Comment on above: Performed By: #### H FPF #### [facility] [address] [place] [address] Dr. Jer Arita Triglyceride [Mass/Vol] 69 mg/dL Normal <=150 [facility] Comment on above: Performed By: #### H FPF #### [facility] [address] [place] [address] Dr. Jer Arita TSH 2.539 uIU/mL Normal 0.358-3.740 [facility] Comment on above: Performed By: #### H FPF #### [facility] [address] [place] [address] Dr. Jer Arita Urea nitrogen [Mass/Vol] 14.0 mg/dL Normal 7.0-18.0 [facility] Comment on above: Performed By: #### H FPF #### [facility] [address] [place] [address] Dr. Jer Arita Urea nitrogen/Creatinine [Mass ratio] 17.5 mg/mg Normal [facility] Comment on above: Performed By: #### H FPF #### [facility] [address] [place] [address] Dr. Jer Arita VLDL CALC 13.8 mg/dL Normal [facility] Comment on above: Performed By: #### H F #### [facility] [address] [place] [address] Dr. Jer Arita Vital Signs Date Time Vital Sign Value Performing Clinician Faci lity 08-20-2022 10:05-0500 Diastolic blood pressure 50 mm[Hg] Esdras NILL [facility] 08-20-2022 10:05-0500 Heart rate 70 /min Esdras NILL [facility] 08-20-2022 10:05-0500 Respiratory rate 14 /min Esdras NILL [facility] 08-20-2022 10:05-0500 SaO2% (BldA) [Mass fraction] 96 % Sedras NILL [facility] 08-20-2022 10:05-0500 Systolic blood pressure 113 mm[Hg] Esdras NILL [facility] 08-20-2022 09:55-0500 Diastolic blood pressure 72 mm[Hg] Esdras NILL [facility] 08-20-2022 09:55-0500 Heart rate 76 /min Esdras NILL [facility] 08-20-2022 09:55-0500 Respiratory rate 17 /min Esdras NILL [facility] 08-20-2022 09:55-0500 SaO2% (BldA) [Mass fraction] 95 % Esdras NILL [facility] 08-20-2022 09:55-0500 Systolic blood pressure 108 mm[Hg] Esdras NILL [facility] 08-20-2022 09:50-0500 Diastolic blood pressure 52 mm[Hg] Esdras NILL [facility] 08-20-2022 09:50-0500 Heart rate 68 /min Esdras NILL [facility] 08-20-2022 09:50-0500 Respiratory rate 16 /min Esdras NILL [facility] 08-20-2022 09:50-0500 SaO2% (BldA) [Mass fraction] 94 % Esdras NILL [facility] 08-20-2022 09:50-0500 Systolic blood pressure 89 mm[Hg] Esdras NILL [facility] 08-20-2022 09:40-0500 Body temperature 98.24 [degF] Esdras NILL [facility] 08-20-2022 08:47-0500 Blood Pressure Location Esdras NILL [facility] 08-20-2022 08:47-0500 Body temperature 97.7 [degF] Esdras NILL [facility] 08-20-2022 08:47-0500 Respiratory rate 15 /min Esdras NILL [facility] 08-05-2022 14:08-0500 Blood Pressure Location Esdras NILL [facility] [place] 08-05-2022 14:08-0500 Diastolic blood pressure 87 mm[Hg] Esdras NILL [facility] [place] 08-05-2022 14:08-0500 Heart rate 80 /min Esdras NILL [facility] [place] 08-05-2022 14:08-0500 Respiratory rate 16 /min Esdras NILL [facility] [place] 08-05-2022 14:08-0500 Systolic blood pressure 151 mm[Hg] Esdras BARBOSA [facility] [place] 05-13-2022 14:41-0400 Blood Pressure Location Nohemi Angel [facility] 05-13-2022 14:41-0400 Diastolic blood pressure 80 mm[Hg] Nohemi Pathak [facility] 05-13-2022 14:41-0400 Heart rate 72 /min Nohemiarnie Pathak [facility] 05-13-2022 14:41-0400 SaO2% (BldA) [Mass fraction] 96 % Nohemiarnie Pathak [facility] 05-13-2022 14:41-0400 Systolic blood pressure 116 mm[Hg] Nohemi Pathak [facility] Encounters Encounter Date Encounter Type Care Provider Facility Start: 07-10-2025 ambulatory Jalen James y:[facility] [place] Start: 06-03-2025 ambulatory Nohemi Pathak Facility :[facility] [place] Start: 11-06-2024 End: 11-06-2024 ambulatory Nohemi Pathak Facility:[facility] [place] Start: 05-28-2024 End: 05-28-2024 ambulatory Nohemi Pathak Facility:[facility] [place] Start: 05-27-2023 End: 05-28-2023 ambulatory CHRISTOPHER SYLVESTERBRANDON [place] [facility] Start: 05-16-2023 End: 05-16-2023 Patient encounter procedure Nohemi Pathak [facility] Start: 08-20-2022 End: 08-20-2022 Patient encounter procedure Esdras BARBOSA [facility] Start: 08-05-2022 End: 08-05-2022 Patient encounter procedure Esdras BARBOSA [facility] [place] Start: 06-14-2022 End: 06-15-2022 ambulatory NOHEMI PATHAK Facility:[facility] Start: 05-13-2022 End: 05-13-2022 Patient encounter procedure Nohemi Pathak [facility] [place] Start: 05-06-2022 End: 05-07-2022 ambulatory NOHEMI PATHAK Facility:[facility] Start: 11-02-2019 End: 11-02-2019 Subsequent hospital visit by physician Christopher [facility] Comment on above: Encounter for well w melina exam with routine gynecological exam Procedures Date Procedure Procedure Detail Performing Clinician Start: 08-20-2022 Colonoscopy Esdras BANG Start: 09-19-2019 Extraction of cataract Nohemi Pathak Start: 09-19-2012 Colonoscopy Nohemi matias Start: 09-19-1998 Lumpectomy of right breast Nohemi Pathak Plan of Treatment Date Care Activity Detail Author Start: 10-13-2023 Cervical cancer screen Cervical canc er screen [employer] Work Phone: Start: 06-04-2020 Breast cancer screen Breast cancer s creen [employer] [facility] Work Phone: Start: 05-20-2019 Influenza vaccination Flu vaccine (# 1) [facility] Phone: Start: 2008 Colon cancer screen colonoscopy Colon cancer screen colonoscopy [employer] Phone: Start: 2008 Shingles Vaccine (1 of 2) Shingles V accine (1 of 2) [employer] [facility] Work Phone: Start: 1998 Lipid screen Lipid screen [facility] Work Phone: Start: 1973 HIV screen HIV screen [employer] Phone: Start: 1969 DTaP/Tdap/Td vaccine (1 - Tdap) DTaP/Tdap/Td vaccine (1 - Tdap) [employer] Phone: Start: 1960 Hepatitis C screen Hepatitis C scree n [employer] Phone: End: 11-02-2019 Cytopathology procedure, preparation of smear, genital source [facility] Routine Encounter for well woman exam with routine gynecological exam 1 Occurrences starting 11/02/2019 until 11/02/2019 [employer] Phone: Comment on above: 1 Occurrences starti ng 11/02/2019 until 11/02/2019 Immunizations Immunization Date Immunization Notes Care Provider Nixon [place] 06-21-2018 Influenza Vaccine, unspecified formulation [facility] Payers Date Payer Category Payer Unknown [employer] [address] xxxxxxxxxxxx 2014-Present [phone] [address] [place] [address] xxxxxxxxxxxx [id number] 1961 Self-pay [id number] 1961 Unknown [id number] 1960 Unknown [id number] 1958 Unknown [id number] 1958 Unknown [id number] 1958 Unknown [id number] 1958 Unknown [id number] 1960 Unknown [id number] Unknown [id number] Social History Date Type Detail Facility Start: 11-02-2019 End: 05-16-2023 Tobacco smoking status NHIS Never smoker [facility] Start: 11-02-2019 Alcohol intake Current drinke r of alcohol (finding) [employer] [facility] Work Phone: Start: 08-31-2013 Alcohol Comment rare [employer] Work Phone: Sex Assigned At Not on file [employer] Phone: Sex Assigned At Female [facility] Tobacco smoking status Never [facility] Functional Status Date Assessment Result Facility 08-20-2022 Functional Status N/A [facility] 08-05-2022 Functional Status N/A [facility] 05-13-2022 Functional Status N/A [facility] Evaluation + Plan note 08-20-2022 Note Date & Type Note Facility 08-20-2022 Evaluation + Plan note Extrac carlton from: Title:ANES POSTOP Author:Jeison Leon DO Date: 08/20/22 Patient: RADHIKA SUAREZ Age: 61 years Sex: Female : 1960 Associated Diagnoses: None Author: Jeison Leon DO Postoperative Information Post Operative Note: Post Anesthesia Care Unit. Physical Examination Vital Signs (last 24 hrs) Last Charted Resp Rate 14 br/min (AUG 20 10:05) IAV643 mmHg (AUG 20 10:05) DBPL 50mmHg (AUG 20 10:05) OhU945 % (AUG 20 10:05) Nzvcbt36.4 kg (DEC 02 08:37) BMI22.88 (AUG 20 08:37) Pain assessment: Pain Assessment 08/20/2022 10:05 EST Numeric Pain Scale 0 = No pain Numeric Pain Score 0 08/20/2022 9:55 EST Numeric Pain Scale 0 = No pain Numeric Pain Score 0 . General: No acute distress. HENT: dentition at preop baseline.. Respiratory: Respirations are non-labored. Cardiovascular: stable hemodynamics. Neurologic: interactive. Assessment Anesthetic outcome No anesthetic complications noted. Adequate pain relief. adequate hydration. PONV controlled. Plan Transfer/ Discharge: Patient can be discharged from PACU when criteria met. Condition good. Addendum by Jeison Leon DO on August 20, 2022 11:34 EST changed note type to progress Extracted from: Title:ANES PREOP ENDO NOTE Author:Hien Leon DO Date:08/20/22 Plan [place] [employer]esthesiologists (ASA) physical status classification: Class II. Anesthetic Preoperative Plan Anesthesia: Monitored anesthesia care and general anesthesia possible. Anesthetic plan, risks, benefits, and alternatives discussed with the patient and/or family. Pt. and/or family present and agree to proceed as planned.. Risks discussed including heart, lung, nerve damage. Risks of bleeding, dental injury, hospitalization, and general injury discussed. . Future Appointments Appointment Date:05/16/2023 06:20:00 PM Scheduled Provider:Nohemi Pathak MD Location:[facility] Appointment Type:[facility] Discharge instructions 08-20-2022 Note Date & Type Note Facility 08-20-2022 Hospital Discharg e instructions Patient Education 08/20/2022 09:47:50 Colonoscopy, Care After Surgery [facility] (CUSTOM) Colonoscopy Care After Surgery Please read the instructions outlined below and refer to this sheet in the next few weeks. These discharge instructions provide you with general information on caring for yourself after you leave the hospital. Your doctor may also give you specific instructions. While your treatment has been planned according to the most current medical practices available, unavoidable complications occasionally occur. If you have any problems or questions after discharge, please call your doctor. ACTIVITY You may resume your regular activity, but move at a slower pace for the next 24 hours. Take frequent rest periods for the next 24 hours. Walking will help get rid of the air and reduce the bloated feeling in your abdomen (belly). No driving for 24 hours (because of the anesthesia (medicine) used during the test). You may shower. Do not sign any important legal documents or operate any machinery for 24 hours (because of the anesthesia used during the test). NUTRITION Drink plenty of fluids. You may resume your normal diet as instructed by your doctor. Begin with a light meal and progress to your normal diet. Heavy or fried foods are harder to digest and may make you feel nauseated (sick to your stomach). Avoid alcoholic beverages for 24 hours or as instructed. MEDICATIONS You may resume your normal medications unless your doctor tells you otherwise. WHAT YOU CAN EXPECT TODAY Some feelings of bloating in the abdomen. Passage of more gas than usual. Spotting of blood in your stool or on the toilet paper. FOLLOW-UP Your doctor will discuss the results of your test with you. SEEK IMMEDIATE MEDICAL ATTENTION IF: There is more than a spotting of blood in your stool. There is abdominal distention (your abdomen is swollen). There is vomiting. You have a temperature over 101.5 F. There is abdominal pain or discomfort that is severe or gets worse throughout the day. 08/20/2022 09:47:50 Diverticulosis MAGR (CUSTOM) Diverticulosis Many people have small pouches in their colon called diverticulum. The diverticulum bulge outward through weak spots in the colon. You could have one or more of these pouches in the colon. The condition of having these pouches in the colon is called diverticulosis or diverticular disease. Diverticulosis is usually diagnosed by tests to evaluate something else. For example, you may have had a colonoscopy to screen for colon cancer when the diverticulosis was found. Most people with diverticulosis do not have any discomfort or problems. If symptoms develop, they may include mild cramps, bloating, and constipation. A complication of this condition is called diverticulitis. This is when the diverticulum become inflamed and infected. How to treat diverticulosis: Increasing the amount of fiber in the diet may reduce symptoms of diverticulosis and prevent complications such as diverticulitis (infected diverticuli). Fiber keeps stool soft and lowers pressure inside the colon so that bowel contents can move through easily. You should eat 20 to 35 grams of fiber each day. The table below shows the amount of fiber in some foods that you can easily add to your diet. Adding fiber slowly may decrease the bloating and fullness sometimes felt with an immediate high fiber diet. The doctor may also recommend taking a fiber product such as Citrucel or Metamucil once a day. In the past people with diverticulosis were to avoid nuts, corn, and seeds. This has not been found to be true. If you find that certain foods create cramping or bloating, avoid that food. Foods high in fiber include: Fresh fruits, fresh vegetables, legumes (beans), whole wheat bread, bran muffins or cereal, and nuts. See the table below for examples of high fiber foods. Remember, your goal is 20-35 grams per day. Amount of fiber in different foods Food Serving Grams of fiber Fruits Apple (with skin) 1 medium apple 4.4 Banana 1 medium banana 3.1 Oranges 1 orange 3.1 Prunes 1 cup, pitted 12.4 Juices Apple, unsweetened, w/added ascorbic acid 1 cup 0.5 Grapefruit, white, canned, sweetened 1 cup 0.2 Grape, unsweetened, w/added ascorbic acid 1 cup 0.5 [place] 1 cup 0.7 Vegetables Cooked Green beans 1 cup 4.0 Carrots 1/2 cup sliced 2.3 Peas 1 cup 8.8 Potato (baked, with skin) 1 medium potato 3.8 Raw [place] (with peel) 1 cucumber 1.5 Lettuce 1 cup shredded 0.5 Tomato 1 medium tomato 1.5 Spinach 1 cup 0.7 Legumes Baked beans, canned, no salt added 1 cup 13.9 Kidney beans, canned 1 cup 13.6 Edward beans, canned 1 cup 11.6 Lentils, boiled 1 cup 15.6 Breads, pastas, flours Bran muffins 1 medium muffin 5.2 Oatmeal, cooked 1 cup 4.0 White bread 1 slice 0.6 Whole-wheat bread 1 slice 1.9 Pasta and rice, cooked Macaroni 1 cup 2.5 Rice, brown 1 cup 3.5 Rice, white 1 cup 0.6 Spaghetti (regular) 1 cup 2.5 Nuts Almonds 1/2 cup 8.7 Peanuts 1/2 cup 7.9 Chart from [facility] 2013. SEEK IMMEDIATE MEDICAL CARE IF: You develop abdominal (belly) pain. An oral temperature above _ 101 F__develops. Repeated vomiting occurs. Blood is being passed in stools (bright red or black tarry stools). You develop any bowel problems or changes which you have not had before. Extra Information: To learn how much fiber and other nutrients are in different foods, visit the [place] Department of Agriculture (USDA) National Nutrient Database at: http://www.nal.usda.gov/fnic/fo odcomp/search/ Created using data from the USDA National Nutrient Database for Standard Reference. Available at http://www.CompleteSet.[employer].gov/fnic/fo odcomp/search/. Information adapted from: [facility] Patient Information 2010 [employer] [facility] 2012 http://www.Quepasa/content s/mvhqveoagdaa-moefzje-upqomp-t he-basics Follow Up Care 08/05/2022 14:32:14 With:Esdras BARBOSA Address: [address] [place], [place] [id number]- Business (1) When: only if needed [facility] Evaluation + Plan note Note Date & Type Note Facility Evaluation + Plan note Future Appointments Appointment Date:05/16/2023 06:20:00 PM Scheduled Provider:Nohemi Pathak MD Location:[facility] Appointment Type:[facility] [place] Evaluation + Plan note Note Date & Type Note Facility Evaluation + Plan note Future Appointments Appointment Date:08/20/2022 09:45:00 AM Scheduled Provider: Location:[facility] Appointment Type:Surgery FT Appointment Date:05/16/2023 06:20:00 PM Scheduled Provider:Nohemi Pathak MD Location:[facility] Appointment Type:[facility] [place] Evaluation + Plan note Note Date & Type Note Facility Evaluation + Plan note Future Appointments Appointment Date:05/14/2024 06:20:00 PM Scheduled Provider:Nohemi Pathak MD Location:[facility] [place] Appointment Type:FM Open [facility] Hospital course Narrative Note Date & Type Note Facility Hospital course Narrative No data available for this section [facility] Discharge instructions Note Date & Type Note Facility Hospital Discharge instructions No data available for this section [facility] Progress note Note Date & Type Note Facility Progress note No data available for this section [facility] Assessments Diagnosis Encounter for well woman exam with routine gynecological exam Advance Directives No Advanced Directives Records FoundDocuments on File Type Date Recorded Patient Route Jumper Expl anation Advance Directives and Living Will 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 Latest Code Status on File Code Status Date Activated Date Inactivated Comments Full Code 08/31/2013 11:02 AM 08/31/2013 1:11 PM Summary Purpose Family History No Family History Records FoundNo Family History Records FoundNo Family History Records Found Additional Source Comments Care Team (unrecognized sect ion and content) Personnel Name: Nohemi Pathak MD Address: [address] [place] [address] Personnel Name: Nohemi Pathak MD Address: Address: [address] [place] [address] Personnel Name: Nohemi Pathak MD Address: Address: [address] [place] [address] Personnel Name: Nohemi Pathak MD Address: Address: [facility] [place] [address] INFORMATION SOURCE (unrecogn ized section and content) DATE CREATED AUTHOR 06/18/2022 [facility] DATE CREATED AUTHOR AUTHOR'S ORGANIZ ATION 06/04/2023 [facility] DATE CREATED AUTHOR AUTHOR'S ORGANIZ ATION 05/14/2025 [facility] FOR RECORDS PERTAINING TO PATIENTS WHO ARE OR HAVE BEEN ENROLLED IN A CHEMICAL DEPENDENCY/SUBSTANCEABUSE PROGRAM, SOME INFORMATION MAY BE OMITTED. This clinical summary was aggregated from multiple sources. Caution should be exercised in using it in the provision of clinical care. This summary normalizes information from multiple sources, and as a consequence, information in this document may materially change the coding, format and clinical context of patient data. In addition, data may be omitted in some cases. CLINICAL DECISIONS SHOULD BE BASED ON THE PRIMARY CLINICAL RECORDS. [facility]. provides no warranty or guarantee of the accuracy or completeness of information in this document.
--- OUTSIDE RECORDS SUMMARY | 2025-07-04 07:48 | XMS_ITS | Encounter Summary ---
Author Organization [facility] Address [address], [address] [place] [address] Care Team Providers Care Viscose Cellar Charge Hand Name Role Phone Christopher Deal MD Primary Care Provider [phone] Encounter Details Date Type Department Care Team (Late st Contact Info) Description 06/16/2021 Abstract [facility] [address] [place] [address] Dr [address] [place], [place] [id number] Abraham Siddiqi MD [address] [place] [address] Social History Tobacco Use Types Packs/Day Years Used Date Smoking Tobacco: Never Smokeless Tobacco: Never Alcohol Use Standard Drinks/Week Comments Yes 0 (1 standard drink = 0.6 oz pur e alcohol) rare PHQ-2 Answer Date Recorded PHQ-2 Score 0 12/20/2018 Comments No Sex and Gender Information Value Date Recorded Sex Assigned at Not on file Legal Sex Female 8:48 PM EST Gender Identity Not on file Sexual Orientation Not on file documented as of this encounter Plan of Treatment Not on file documented as of this encounter Visit Diagnoses Not on filedocumented in this encounter Care Teams Viscose Cellar Charge Hand Relationship Specialty Start Date End Date Christopher Deal MD [address] [place], [place] [id number] PCP - General 12/26/12 documented as of this encounter
--- NOTE | 2025-07-04 08:16 | MM_ITS ---
Patient Name: NOLBERTO SUAREZ MR#: [id number] : 1960 Exam Date: 07/04/2025 Ordering Doctor: DR MALA IVERSON RADIOLOGY REPORT PROCEDURE: MM TOMOSYNTHESIS SCREENING BI COMPARISON: MM TOMOSYNTHESIS SCREENING BI, 07/03/2024. MM TOMOSYNTHESIS SCREENING BI, 06/17/2023. MG MAMM SCREEN 3D ANEL CAD, 06/14/2022. MG MAMM ANEL SCRN W CAD DIG, 04/06/2013. INDICATIONS: Screening Calculator Name NCI Breast Cancer Risk Assessment Tool 5 Year Breast Cancer Risk n/a% Lifetime Breast Cancer Risk n/a% Personal Breast Cancer Yes, RT BREAST AGE 39 Personal Ovarian Cancer No Treatments RT BREAST LUMPECTOMY WITH RADIATION Family Cancers Mother with breast cancer at age 56; Sister with breast cancer at age 54; Sister with breast cancer at age 49. LOCATION: [facility] BREAST COMPOSITION: The breasts are heterogeneously dense, which may obscure small masses. FINDINGS: RIGHT BREAST: No significant suspicious finding. LEFT BREAST: No significant suspicious finding. DIAGNOSTIC CATEGORY 1--NEGATIVE. RECOMMENDATIONS: ROUTINE MAMMOGRAM AND CLINICAL EVALUATION IN 12 MONTHS. Dictated by: Luis Calles MD on 07/04/2025 at 09:40 Approved by: Luis Calles MD on 07/04/2025 at 10:03
== END 2025-07-04 07:47 | disposition home or self-care (01) ==
LOC: MAMMO 07:46
PROVIDERS: Visit Provider Obstetrics & Gynecology
DX: Z12.31 Encounter for screening mammogram for malignant neoplasm of breast (principal); Z85.3 Personal history of malignant neoplasm of breast; Z80.3 Family history of malignant neoplasm of breast
CPT/HCPCS: 77063; 77067